=== PATIENT | female | born 1965 | race Caucasian/White ===

== ENCOUNTER 2021-08-29 06:41 | Day surgery (SDC) | payer OTHER ==
[~2021-08-29] VITALS: Ht 165 cm; Wt 79.0 kg
[~2021-08-29 06:41] MED LIST: CELEXA40 MG PO; CLARITIN10 MG PO; COLESTID1 GM PO; FLONASE ALLER15.8 ML; HCTZ12.5 MG PO; JANUMET 50-1,01 EACH PO; JARDIANCE10 MG PO; MOTRIN600 MG PO; PRINIVIL10 MG PO; RISPERDAL 0.5M0.5 MG PO; ROBAXIN750 MG PO; SYNTHROID100 MCG PO; TRESIBA FL100 UNIT/1 SC; VITAMIN D325 MC2 PO; ZETIA10 MG PO
[2021-08-29] MEDS ORDERED: NEXIUM20 MG PO (07:06)
[2021-08-29 07:19] LABS: HCG (URINE) SCREEN NEGATIVE (NEGATIVE)
[2021-08-29 07:22] LABS: HCT 44.3 % (37.0-47.0); HGB 14.5 g/dl (12.5-16.0); MCH 29.1 pg (25.0-31.0); MCHC 32.7 g/dL (32.0-36.0); MCV 88.8 fL (78.0-100.0); MPV 9.2 fL (6.0-9.5); RBC 4.99 M/uL (4.20-5.40); RDW 12.8 % (11.5-14.0); WBC 8.2 K/uL (4.0-10.5)
[2021-08-29 20:07] LABS: BASOPHIL 0.2 % (0-2); EOSINOPHIL 0 % (0-5); HCT 38.3 % (37.0-47.0); HGB 12.8 g/dl (12.5-16.0); LYMPHOCYTE 7.3 % (15-48); MCH 29.4 pg (25.0-31.0); MCHC 33.4 g/dL (32.0-36.0); MCV 87.8 fL (78.0-100.0); MPV 8.9 fL (6.0-9.5); NRBC 0; PLT 178 K/uL (150-400); RBC 4.36 M/uL (4.20-5.40); RDW 12.7 % (11.5-14.0); WBC 12.7 K/uL (4.0-10.5)
[2021-08-29 20:18] LABS: BUN/CREAT RATIO (CALC) 19.7 RATIO; CREATININE 0.66 mg/dL (0.51-0.95); POTASSIUM 4.1 mmol/L (3.5-5.1)
--- NOTE | 2021-08-30 08:34 | NUR ---
DR. GALDAMEZ AT TO SPEAK WITH PT ABOUT POC AND DISCHARGE HOME TODAY.
[2021-08-30 08:50] LABS: HCT 39.4 % (37.0-47.0); MCH 29.4 pg (25.0-31.0); MCV 89.1 fL (78.0-100.0); RBC 4.42 M/uL (4.20-5.40); WBC 11.2 K/uL (4.0-10.5)
[2021-08-30 09:05] LABS: ALBUMIN 3.1 g/dL (3.4-5.0); BILIRUBIN - TOTAL 0.5 mg/dL (0.2-1.0); BUN/CREAT RATIO (CALC) 18.8 RATIO; CREATININE 0.64 mg/dL (0.51-0.95); GLOBULIN (CALCULATION) 3.7 g/dL; TOTAL PROTEIN 6.8 g/dL (6.4-8.2)
== END 2021-08-30 12:05 | disposition home or self-care (01) ==
LOC: FAS 06:41 → FOB 17:58 → FAS 08-30 12:05
PROVIDERS: Specialist
DX: N72 Inflammatory disease of cervix uteri (principal); N80.0 Endometriosis of uterus; D25.1 Intramural leiomyoma of uterus; N99.85 Post endometrial ablation syndrome; E11.9 Type 2 diabetes mellitus without complications; I10 Essential (primary) hypertension; E78.00 Pure hypercholesterolemia, unspecified; K21.9 Gastro-esophageal reflux disease without esophagitis; E03.9 Hypothyroidism, unspecified; Z79.84 Long term (current) use of oral hypoglycemic drugs; Z79.899 Other long term (current) drug therapy; Z72.89 Other problems related to lifestyle
CPT/HCPCS: 36415; 80048; 80053; 84703; 85025; 86850; 86900; 86901; 94010; 94760; J0690; J1100; J1170; J2250; J2405; J2704; J2710; J3010; J7040; J7120; Q9968